=== PATIENT | female | born 1985 | race Caucasian/White ===

== ENCOUNTER → 2019-01-07 | Outpatient (CLI) | payer OTHER | LOC: M.WC 09:00 | DX: T81.89XA Other complications of procedures, not elsewhere classified, initial encounter (principal); F41.9 Anxiety disorder, unspecified; Y92.89 Other specified places as the place of occurrence of the external cause; Y83.8 Other surgical procedures as the cause of abnormal reaction of the patient, or of later complication, without mention of misadventure at the time of the procedure ==

== ENCOUNTER → 2019-01-21 | Outpatient (CLI) | payer OTHER | LOC: M.WC 05:17 | DX: T81.89XD Other complications of procedures, not elsewhere classified, subsequent encounter (principal); F41.9 Anxiety disorder, unspecified; Y83.8 Other surgical procedures as the cause of abnormal reaction of the patient, or of later complication, without mention of misadventure at the time of the procedure ==

== ENCOUNTER → 2019-02-06 | Outpatient (CLI) | payer OTHER | LOC: M.WC 05:19 | DX: T81.89XD Other complications of procedures, not elsewhere classified, subsequent encounter (principal); F41.9 Anxiety disorder, unspecified; Y83.8 Other surgical procedures as the cause of abnormal reaction of the patient, or of later complication, without mention of misadventure at the time of the procedure ==

== ENCOUNTER → 2021-04-28 | Outpatient (CLI) | payer OTHER | LOC: M.RAD 16:59 | PROVIDERS: ATTEND Obstetrics & Gynecology | DX: Z12.31 Encounter for screening mammogram for malignant neoplasm of breast (principal) ==